=== PATIENT | female | born 1985 | race Caucasian/White ===

== ENCOUNTER 2019-07-25 08:27 | Inpatient (IN) | payer BC, SELFPAY ==
[~2019-07-25 08:27] MED LIST: CARBOPROST TROME 250 MCG/ML IM PRN; METHYLERGONOVINE 0.2MG/ML AMP IM PRN; Ringers Lactate 1,000 ML IV PRN
[2019-07-25] MEDS ORDERED: BUTORPHANOL 1 MG/ML INJ IV ONE (08:38)
[2019-07-25] MEDS ORDERED: PROMETHAZINE 25 MG/ML VIAL IM PRN (08:38)
[2019-07-25 08:44] LABS: Urine Appearance CLOUDY; Urine Bilirubin NEGATIVE (NEG); Urine Blood NEGATIVE (NEG); Urine Color YELLOW; Urine Glucose NEGATIVE (NEG); Urine Protein NEGATIVE (NEG); Urine Specific Gravity 1.025 (1.005-1.030); Urine Urobilinogen 0.2 mg/dL (0.2-1.0); Urine pH 6.5 (5.0-7.0)
[2019-07-25 08:50] LABS: Urine Microscopic Reflex ORDER UMIC
[2019-07-25 08:58] VITALS: BMI 26.1
[2019-07-25 08:58] LABS: Basophils % 0.4 % (0-1.3); Hematocrit 38.4 % (36.0-45.0); Lymphocytes % 27.1 % (15.3-44.8); MPV 11.3 fL (7.6-11.3); RBC Red Blood Cell Count 4.18 M/uL (3.86-4.86)
[2019-07-25 09:00] LABS: Urine RBC <5 /HPF (NONE SEEN)
[2019-07-25] MEDS ORDERED: Ringers Lactate 1,000 ML IV SCH (09:00)
[2019-07-25] MEDS ORDERED: OXYTOCIN/LR 20 UNIT/1,000 ML BAG IV SCH ×2 (09:00→13:00)
[2019-07-25 09:01] LABS: Urine Bacteria 20-50 /HPF (<20); Urine Culture Reflex Order REFLEXED; Urine Mucus SLIGHT /HPF (NONE SEEN)
[2019-07-25] MEDS ORDERED: ROPIVACAINE HCL 100 ML IV PRN (10:43)
[2019-07-25] MEDS ORDERED: FENTANYL CITR 100 MCG/2 ML IV ONE (10:43)
[2019-07-25] MEDS ORDERED: ROPIVACAINE HCL 2 MG/ML 100ML IV ONE (10:44)
[2019-07-25] MEDS ORDERED: ROPIVACAINE HCL 20 ML ONE (11:02)
[2019-07-25] MEDS ORDERED: INFLUENZA VACCINE (for 3y+) 0.5 ML DOSE IMVAC ONE (12:00)
[2019-07-25] MEDS ORDERED: METHYLERGONOVINE 0.2 MG TAB PO PRN (12:51)
[2019-07-25] MEDS ORDERED: IBUPROFEN 200 MG TAB PO PRN (12:51)
[2019-07-25] MEDS ORDERED: Oxycodone HCl/Acetaminophen 1 TAB TAB PO PRN (12:51)
[2019-07-25] MEDS ORDERED: CARBOPROST TROME 250 MCG/ML IM PRN (12:51)
[2019-07-25] MEDS ORDERED: METHYLERGONOVINE 0.2MG/ML AMP IM PRN (12:51)
[2019-07-26 01:28] LABS: RPR (Rapid Plasma Reagin) NON-REACT (NON-REACT)
--- NOTE | 2019-07-26 03:07 | DN ---
Surgeon: Neeraj Cheek MD Delivery Summary: Ms. Hernández is a 33-year-old female, 2, para 1-0-0-1, at 39+ weeks' gestation. She is admitted for elective induction of labor secondary to term w ith favorable cervix. After artificial rupture of membranes, Pitocin induction of labor, placement o f epidural catheter, she had a first stage of labor at 3 hours and 34 minutes, second stage of labor at 30 minutes. She delivered by low forceps, a 7-pound 3-ounce male , 9 and 9. After de layed cord clamping, this was clamped, cut, and the infant placed on mother's upper abdomen. Cord bl ood was obtained. The placenta was spontaneously expelled and appeared to be intact. Intrauterine e xam revealed no retained placental fragments. Right midline episiotomy was repaired in the usual fas hion with 3-0 Vicryl suture. Estimated total blood loss was less than 300 mL. Patient was delivered by forceps secondary to variable type of decelerations during the second stage of labor. BARBARA/QING Voice ID: [id number] Report ID: [id number]
--- NOTE | 2019-07-26 09:38 | PREOPHP ---
Date of Admission: 07/25/2019 Mrs. Couch is a 33-year-old female, 2, para 1-0-0-1, now at 39+ weeks gest ation. She will be admitted for elective induction of labor secondary to term with favorab le cervix on Thursday. She has been followed by me during this without complications other t campbell a history of a prolonged second stage of labor and mild shoulder dystocia with delivery of her fi rst . Past Medical History: Please see record. Family History: Please see record. Review of Systems: She reports no recent cough, cold, fever, or chills. No recent nausea or vomiting. No breast knots or lumps. No bowel or bladder issues. Physical Examination: General: female, in no apparent distress. Neck: Supple without adenopathy or thyromegaly. Lungs: Clear. Cardiac: Regular rate and rhythm without murmurs. Breasts: Not examined. Abdomen: Estimated weight 6+ to 7 pounds. Pelvic: Cervix 1+ to 2 cm, 50% effaced, midposition. Vertex between -1 and -2 station. Extremities: No cyanosis, clubbing, or edema. Impression: Term , favorable cervix. The patient will be admitted for induction of labor o n Thursday. She has signed the operative permit in my presence BARBARA/QING Voice ID: [id number]
[2019-07-26 12:58] VITALS: BP 106/67; TEMP 98.8
[2019-07-26] MEDS ORDERED: INFLUENZA VACCINE (for 3y+) 0.5 ML DOSE IMVAC ONE (14:22)
[2019-07-27 20:26] LABS: HBsAG Nonreactive (Nonreactive)
== END 2019-07-26 15:25 | disposition home or self-care (01) | DRG 807 ==
LOC: 2ND-WC 08:27
PROVIDERS: ADMIT Specialist; ATTEND Specialist
PROC: 0W8NXZZ Division of Female Perineum, External Approach (ICD-10-PCS; principal; 2019-07-25)
PROC: 10D07Z3 Extraction of Products of Conception, Low Forceps, Via Natural or Artificial Opening (ICD-10-PCS; 2019-07-25)
PROC: 10907ZC Drainage of Amniotic Fluid, Therapeutic from Products of Conception, Via Natural or Artificial Opening (ICD-10-PCS; 2019-07-25)
PROC: 3E033VJ Introduction of Other Hormone into Peripheral Vein, Percutaneous Approach (ICD-10-PCS; 2019-07-25)
DX: O76 Abnormality in fetal heart rate and rhythm complicating labor and delivery (principal); Z37.0 Single live birth; Z3A.39 39 weeks gestation of pregnancy; Z23 Encounter for immunization
CPT/HCPCS: 36415; 81003; 81015; 85014; 85025; 86592; 86901; 87086; 87088; 87340; 90471; J2210; J2590; J2795; J3010; Q2035